=== PATIENT | female | born 1930 | race Caucasian/White ===

== ENCOUNTER 2017-12-23 13:16 | Observation (INO) | payer MEDICARE ==
[~2017-12-23 13:16] MED LIST: AMLO10TA2 PO; ASPI1TAB57 PO; CALC1TAB87 PO; FURO1TAB60 PO; K-TA10TA PO; LATA.005%O EACH EYE; LUTE6TAB2 PO; METO25TA3 PO; MULTTAB67 PO; NITR0.4S SL; PLAV75TA29 PO; SIMV20TA PO; TIMO0.2517 EACH EYE
[2017-12-23 13:54] VITALS: BP 172/76; PULSE 76; RESP 14; TEMP 98.8; O2SAT 97
[2017-12-23 14:27] LABS: AUTOMATED NEUTROPHIL # 5.9 TH/MM3 (1.8-7.7); BASOPHIL # 0.1 TH/MM3 (0-0.2); BASOPHIL % 0.9 % (0.0-2.0); EOSINOPHIL # 0.1 TH/MM3 (0-0.4); EOSINOPHIL % 1.3 % (0.0-4.0); HEMATOCRIT 36.3 % (35.0-46.0); LYMPHOCYTE # 0.7 TH/MM3 (1.0-4.8); MEAN CELL VOLUME 93.1 FL (80.0-100.0); MEAN CORPUSCULAR HEMOGLOBIN 30.7 PG (27.0-34.0); MONO % 9.5 % (0.0-8.0); MONOCYTE # 0.7 TH/MM3 (0-0.9); NEUT % 79.3 % (16.0-70.0); PLATELET COUNT 286 TH/MM3 (150-450); RED CELL DISTRIBUTION WIDTH 13.9 % (11.6-17.2); WHITE BLOOD COUNT 7.4 TH/MM3 (4.0-11.0)
[2017-12-23 14:36] LABS: PROTHROMBIN TIME - PATIENT 10.5 SEC (9.8-11.6)
--- NOTE | 2017-12-23 14:45 | PD ---
HPI Chief Complaint: Fall Time Seen by Provider: 14:00 Travel History International Travel<30 days: No Contact w/Intl Traveler<30days: No Traveled to known affect area: No History of Present Illness HPI Patient is an 87-year-old female presenting to the emergency room for evaluation dizzy, fell down causing a contusion to her left scalp. Patient is unsure if she lost consciousness. The fall was unwitnessed. Patient states that she felt dizzy for several months, it has been worse recently. She has a history of hypertension, she states that a lot of her medications were recently discontinued but cannot recall which ones they were. She is denying any chest pain, shortness of breath, fevers, chills, headache. She states the pain in her head is a 4 out of 10, and sore. Symptom onset is unknown, symptom severity is moderate, there are no alleviating factors. PFSH Past Medical History Atrial Fibrillation: Yes Cancer: Yes (left breast) High Cholesterol: Yes Chest Pain: Yes Coronary Artery Disease: Yes Gastrointestinal Disorders: Yes Hypertension: Yes Implanted Vascular Access Dvce: Yes Musculoskeletal: Yes (osteoporosis ) Neurologic: Yes (dizzy occasionally-eval by neurologist ) Immunizations Current: Yes Radiation Therapy: Yes Past Surgical History Body Medical Devices: stents Coronary Stent: Yes Eye Surgery: Yes (gilberto cataract removal) Gynecologic Surgery: Yes (left breast lumpectomy/mastectomy) Oral Surgery: Yes (tonsillectomy) Tonsillectomy: Yes Social History Alcohol Use: Yes (occasionally) Tobacco Use: No Substance Use: No Allergies-Medications (Allergen,Severity, Reaction): Coded Allergies: mesalamine (Unverified Allergy, Severe, n/v, 05/24/17) escitalopram (Unverified Allergy, Intermediate, 05/24/17) oxycodone (Unverified Allergy, Mild, 05/24/17) Reported Meds & Prescriptions Reported Meds & Active Scripts Active Metoprolol Tartrate 25 Mg Tab 25 Mg PO BID Reported Namenda (Memantine) 10 Mg Tab 10 Mg PO DAILY Amlodipine (Amlodipine Besylate) 10 Mg Tab 2.5 Mg PO DAILY hold for SBP below 120 Timolol Maleate (Timolol Maleate (Ophth)) 0.25 % Cielo 1 Drop EACH EYE BID Simvastatin 20 Mg Tab 20 Mg PO HS Plavix (Clopidogrel Bisulfate) 75 Mg Tab 75 Mg PO DAILY Nitrostat SL (Nitroglycerin) 0.4 Mg Subl 0.4 Mg SL DIRECTED PRN ONE TABLET UNDER THE TONGUE NEEDED FOR CHEST PAIN, MAY REPEAT EVERY FIVE MINUTES FOR A TOTAL OF 3 DOSES OR CALL 911 IF NO RELIEF Multiple Vitamin 1 Tab 1 Tab PO DAILY Lasix (Furosemide) 40 Mg Tab 40 Mg PO DAILY Aspirin 81 (Aspirin) 81 Mg Tabdr 81 Mg PO DAILY Xalatan Opth Drops (Latanoprost) 0.005% Drops 1 Drop EACH EYE HS Lutein 6 Mg Tab 8 Mg PO DAILY K-Tab (Potassium Chloride) 10 Meq Tab 10 Meq PO DAILY Calcium 600 with Vitamin D (Calcium Carbonate-Cholecalciferol) 600-400 mg-Unit Tab 1 Tab PO DAILY Review of Systems Except as stated in HPI: all other systems reviewed are Neg Eyes: No: Blurred Vision HENT: No: Headaches Cardiovascular: No: Chest Pain or Discomfort Respiratory: No: Shortness of Breath Gastrointestinal: No: Nausea, Abdominal Pain Skin: Positive Lumps Neurologic: Positive: Dizziness Physical Exam Narrative GENERAL: Well-developed, well-nourished, alert elderly female. Presenting in no acute distress. SKIN: Warm and dry. HEAD: Atraumatic. Normocephalic. Contusion to left occipital area. EYES: Pupils equal and round. No scleral icterus. No injection or drainage. ENT: No nasal bleeding or discharge. Mucous membranes pink and moist. NECK: Trachea midline. No JVD. CARDIOVASCULAR: Regular rate and rhythm. RESPIRATORY: No accessory muscle use. Clear to auscultation. Breath sounds equal bilaterally. GASTROINTESTINAL: Abdomen soft, non-tender, nondistended. Hepatic and splenic margins not palpable. MUSCULOSKELETAL: Extremities without clubbing, cyanosis, or edema. No obvious deformities. NEUROLOGICAL: Awake and alert. No obvious cranial nerve deficits. Motor grossly within normal limits. Five out of 5 muscle strength in the arms and legs. Normal speech. PSYCHIATRIC: Appropriate mood and affect; insight and judgment normal. Data Data Last Documented VS Vital Signs Date Time Temp Pulse Resp B/P (MAP) Pulse Ox O2 Delivery O2 Flow Rate FiO2 12/23/17 16:00 68 16 160/74 (102) 98 Room Air 12/23/17 13:54 98.8 Orders Orders Electrocardiogram (12/23/17 13:56) Complete Blood Count With Diff (12/23/17 13:56) Comprehensive Metabolic Panel (12/23/17 13:56) Iv Access Insert/Monitor (12/23/17 13:56) Urinalysis - C+S If Indicated (12/23/17 13:56) Coag Profile (12/23/17 13:57) Ct Brain W/O Iv Contrast(Rout) (12/23/17 ) Ct Cerv Spine W/O Contrast (12/23/17 ) Ckmb (Isoenzyme) Profile (12/23/17 15:20) Troponin I (12/23/17 15:20) Lidocai-Epi 1%-1:100,000 Inj (Xylocaine- (12/23/17 16:45) Place In Observation (12/23/17 ) Code Status (12/23/17 17:49) Vital Signs (Adult) Q4H (12/23/17 17:49) Activity Oob With Assistance (12/23/17 17:49) Miniature Model Maker / Telemetry .CONTINUOUS (12/23/17 17:49) Diet Heart Healthy (12/23/17 Dinner) Sodium Chloride 0.9% Flush (Ns Flush) (12/23/17 18:00) Sodium Chloride 0.9% Flush (Ns Flush) (12/23/17 21:00) Acetaminophen (Tylenol) (12/23/17 18:00) Ondansetron Inj (Zofran Inj) (12/23/17 18:00) Basic Metabolic Panel (Bmp) (12/24/17 06:00) Complete Blood Count With Diff (12/24/17 06:00) Chest, Single Ap (12/23/17 17:49) Electrocardiogram (12/23/17 17:49) Pt Request For Service (12/23/17 17:49) Scd Bilateral/Knee High BOUCHRA.BID (12/23/17 17:49) Naloxone Inj (Narcan Inj) (12/23/17 18:00) Magnesium Hydroxide Liq (Milk Of Magnesi (12/23/17 18:00) Admit Order (Ed Use Only) (12/23/17 17:51) Miniature Model Maker / Telemetry BOUCHRA.Q8H (12/23/17 17:51) Vital Signs (Adult) Q4H (12/23/17 17:51) Activity Oob With Assistance (12/23/17 17:51) Notify Dr: Other (12/23/17 17:51) Labs Laboratory Tests Test 12/23/17 13:56 12/23/17 13:58 12/23/17 13:59 Blood Urea Nitrogen 12 MG/DL Creatinine 1.00 MG/DL Random Glucose 95 MG/DL Total Protein 6.6 GM/DL Albumin 3.3 GM/DL Calcium Level 8.4 MG/DL Alkaline Phosphatase 84 U/L Aspartate Amino Transf (AST/SGOT) 25 U/L Alanine Aminotransferase (ALT/SGPT) 18 U/L Total Bilirubin 0.5 MG/DL Sodium Level 143 MEQ/L Potassium Level 3.7 MEQ/L Chloride Level 109 MEQ/L Carbon Dioxide Level 26.3 MEQ/L Anion Gap 8 MEQ/L Estimat Glomerular Filtration Rate 52 ML/MIN White Blood Count 7.4 TH/MM3 Red Blood Count 3.90 MIL/MM3 Hemoglobin 12.0 GM/DL Hematocrit 36.3 % Mean Corpuscular Volume 93.1 FL Mean Corpuscular Hemoglobin 30.7 PG Mean Corpuscular Hemoglobin Concent 33.0 % Red Cell Distribution Width 13.9 % Platelet Count 286 TH/MM3 Mean Platelet Volume 9.0 FL Neutrophils (%) (Auto) 79.3 % Lymphocytes (%) (Auto) 9.0 % Monocytes (%) (Auto) 9.5 % Eosinophils (%) (Auto) 1.3 % Basophils (%) (Auto) 0.9 % Neutrophils # (Auto) 5.9 TH/MM3 Lymphocytes # (Auto) 0.7 TH/MM3 Monocytes # (Auto) 0.7 TH/MM3 Eosinophils # (Auto) 0.1 TH/MM3 Basophils # (Auto) 0.1 TH/MM3 CBC Comment DIFF FINAL Differential Comment Prothrombin Time 10.5 SEC Prothromb Time International Ratio 1.0 RATIO Activated Partial Thromboplast Time 23.3 SEC MDM Medical Decision Making Medical Screen Exam Complete: Yes Emergency Medical Condition: Yes Interpretation(s) Vital Signs Date Time Temp Pulse Resp B/P (MAP) Pulse Ox O2 Delivery O2 Flow Rate FiO2 12/23/17 13:54 98.8 76 14 172/76 (108) 97 Differential Diagnosis Vertigo versus contusion versus hemorrhage versus arrhythmia versus metabolic abnormality versus other Narrative Course Patient is an 87-year-old female presenting for evaluation of head injury after a mechanical fall secondary to being dizzy. Patient's vital signs are stable, labs and imaging ordered and pending. CBC with no acute findings Chemistry with no acute findings CT of the cervical spine shows no acute fracture or soft tissue swelling, there is mild chronic compression deformity involving C7. Minimal cervical spondylosis from C2-C5. Mild scoliosis CT the brain shows moderate periventricular and subcortical white matter small vessel ischemic changes bilaterally. No acute infarct, hemorrhage midline shift or extra-axial fluid collections. Small hematoma along the left posterior parietal skull. Patient's vital signs are stable, she is resting comfortably. Patient will be admitted for syncopal episode. Procedures Procedure Narrative LACERATION LOCATION: Posterior scalp LENGTH: 3 cm NUMBER OF STITCHES/JAHAIRA: 8 jahaira REPAIR: The area of the laceration was prepped with Betadine and sterilely draped. The laceration was infiltrated with 1% lidocaine with epi. The wound was copiously irrigated and explored without evidence of foreign body, tendon injury or neurovascular injury. The wound was closed using jahaira. This was a 1 layer repair. A sterile dressing was applied. The patient was advised to keep the dressing clean and dry. Patient tolerated the procedure well. Diagnosis Primary Impression: Syncope Qualified Codes: R55 - Syncope and collapse Additional Impression: Laceration of head Qualified Codes: S01.01XA - Laceration without foreign body of scalp, initial encounter Admitting Information Admitting Physician Requests: Observation Condition: Stable Maryanne Martinez Dec 23, 2017 14:45
[2017-12-23 14:50] LABS: ALKALINE PHOSPHATASE 84 U/L (45-117); TOTAL BILIRUBIN ADULT 0.5 MG/DL (0.2-1.0); TOTAL PROTEIN 6.6 GM/DL (6.4-8.2)
[2017-12-23 14:52] LABS: ALBUMIN 3.3 GM/DL (3.4-5.0); ALT (GPT) 18 U/L (10-53); AST (GOT) 25 U/L (15-37); BICARBONATE 26.3 MEQ/L (21.0-32.0); BLOOD UREA NITROGEN 12 MG/DL (7-18); CALCIUM 8.4 MG/DL (8.5-10.1); CHLORIDE 109 MEQ/L (98-107); GLOMERULAR FILTRATION RATE 52 ML/MIN (>89); GLUCOSE,RANDOM 95 MG/DL (74-106); SODIUM (NA) 143 MEQ/L (136-145)
--- NOTE | 2017-12-23 14:55 | RADRPT ---
EXAM DATE/TIME: 12/23/2017 14:32 [facility] COMPARISON: No previous studies available for comparison. INDICATIONS : Fell, hit back of head RADIATION DOSE: 56.35 CTDIvol (mGy) MEDICAL HISTORY : Cardiovascular disease. Hypertension. Osteoporosis.Radiation therapy SURGICAL HISTORY : Lobectomy. Lumpectomy, mastectomy ENCOUNTER: Initial ACUITY: 1 day PAIN SCALE: 7/10 LOCATION: cranial TECHNIQUE: Multiple contiguous axial images were obtained of the head. Using automated exposure control and adj ustment of the mA and/or kV according to patient size, radiation dose was kept as low as reasonably a chievable to obtain optimal diagnostic quality images. DICOM format image data is available electro nically for review and comparison. FINDINGS: CEREBRUM: The ventricles are normal for age. No evidence of midline shift, mass lesion, hemorrhage or acute in farction. No extra-axial fluid collections are seen. Moderate periventricular and subcortical white matter small vessel ischemic changes are noted bilaterally. POSTERIOR FOSSA: The cerebellum and brainstem are intact. The 4th ventricle is midline. The cerebellopontine angle i s unremarkable. EXTRACRANIAL: The visualized portion of the orbits is intact. Small subgaleal hematoma along the left posterior par ietal skull is noted. SKULL: The calvaria is intact. No evidence of skull fracture. CONCLUSION: 1. Moderate periventricular and subcortical white matter small vessel ischemic changes bilaterally. 2. No acute infarct, acute hemorrhage, midline shift or extra-axial fluid collections. 3. Small subgaleal hematoma along the left posterior parietal skull. Paul Collazo MD on December 23, 2017 at 14:52 Board Certified Radiologist. This report was verified electronically.
--- NOTE | 2017-12-23 15:04 | RADRPT ---
EXAM DATE/TIME: 12/23/2017 14:32 [facility] COMPARISON: No previous studies available for comparison. INDICATIONS : Fell, hit back of head RADIATION DOSE: 13.55 CTDIvol (mGy) MEDICAL HISTORY : Cardiovascular disease. Hypertension. Osteoporosis.Radiation therapy SURGICAL HISTORY : Lumpectomy, mastectomy ENCOUNTER: Initial ACUITY: 1 day PAIN SCALE: 6/10 LOCATION: neck TECHNIQUE: Volumetric scanning of the cervical spine was performed. Multiplanar reconstructions in the sagittal, coronal and oblique axial planes were performed. Using automated exposure control and adjustment o f the mA and/or kV according to patient size, radiation dose was kept as low as reasonably achievable to obtain optimal diagnostic quality images. DICOM format image data is available electronically f or review and comparison. FINDINGS: There is no acute fracture or prevertebral soft tissue swelling. Mild cervical spondylosis is noted a t C2-3, C3-4 and C4-5. Mild chronic compression deformity involving C7 is noted. Mild scoliosis is no sarah. C2-C3: The bony spinal canal is normal in size. No evidence of disc bulge or herniation. The neural forami na are bilaterally patent. C3-C4: The bony spinal canal is normal in size. No evidence of disc bulge or herniation. The neural forami na are bilaterally patent. C4-C5: The bony spinal canal is normal in size. No evidence of disc bulge or herniation. The neural forami na are bilaterally patent. C5-C6: The bony spinal canal is normal in size. No evidence of disc bulge or herniation. The neural forami na are bilaterally patent. C6-C7: The bony spinal canal is normal in size. No evidence of disc bulge or herniation. The neural forami na are bilaterally patent. C7-T1: The bony spinal canal is normal in size. No evidence of disc bulge or herniation. The neural forami na are bilaterally patent. CONCLUSION: 1. No acute fracture or prevertebral soft tissue swelling. 2. Mild chronic compression deformity involving C7. 3. Mild cervical spondylosis from C2 through C5. 4. Mild scoliosis. Paul Collazo MD on December 23, 2017 at 14:59 Board Certified Radiologist. This report was verified electronically.
[2017-12-23 16:00] VITALS: BP 160/74; PULSE 68; RESP 16; O2SAT 98
[2017-12-23] MEDS ORDERED: LIDOCAINE 1%/EPINEPHrine 1:100,000 SOLN 50 ML VIAL INFIL ONE (16:45)
[2017-12-23] MEDS ORDERED: ONDANSETRON HCL 4 MG/2 ML VIAL IVP PRN (18:00)
[2017-12-23] MEDS ORDERED: SODIUM CHLORIDE 0.9% FLUSH 10 ML FLUSH IV FLUSH PRN (18:00)
[2017-12-23] MEDS ORDERED: NALOXONE HCL 0.4 MG/ML AMP IV PUSH PRN (18:00)
[2017-12-23] MEDS ORDERED: NITROGLYCERIN 0.4 MG SL 25 TABS/BTL SL PRN (18:00)
[2017-12-23] MEDS ORDERED: ACETAMINOPHEN 325 MG TAB PO PRN (18:00)
[2017-12-23] MEDS ORDERED: MAGNESIUM HYDROXIDE SUSP 30 ML CUP PO PRN (18:00)
--- NOTE | 2017-12-23 18:03 | HHI.HP ---
HPI Service [facility] Hospitalists Primary Care Physician Rojas Bragg M.D. Admission Diagnosis SYNCOPE, HEAD INJURY Chief Complaint: syncope Travel History International Travel<30 Days: No Contact w/Intl Traveler <30 Da: No Traveled to Known Affected Are: No History of Present Illness Mrs. Beavers is a pleasant 87y y/o female with hypertension, coronary artery disease, paroxysmal atrial fibrillation, and hyperlipidemia. Patient is a poor historian therefore information gathered from patient as well as prior charting. Patient presented to the [facility] ER with complaint of worsening dizziness, patient fell down causing a contusion to her left scalp. Patient is unsure if she lost consciousness. The fall was unwitnessed. Patient states that she felt dizzy for several months, it has been worse recently. Patient denies any loss of bowel or bladder control. She is denying any chest pain, shortness of breath, fevers, chills, headache. She states the pain in her head is a 4 out of 10, described as sore. In review of outpatient records patient was last seen by her PCP Dr. Bragg November 07, 2017 at which time he stopped her escitalopram, reduced alprazolam 0.25 mg at bedtime and reduced amlodipine to 2.5 mg daily. Review of Systems Constitutional: COMPLAINS OF: Dizziness Respiratory: DENIES: Shortness of breath Cardiovascular: DENIES: Chest pain, Palpitations Neurologic: COMPLAINS OF: Headache, DENIES: Localized weakness, Speech Problems Past Family Social History Past Medical History Hypertension Coronary artery disease, prior coronary stents as well as in-stent restenosis Paroxysmal atrial fibrillation Anxiety Glaucoma Diverticulosis Left breast cancer, status post left breast lumpectomy CKD, stage 3 Depression Memory loss 2D echo (07/20/16): - Estimated EF 60-65% - Trace mitral valve regurgitation - Trace aortic valve regurgitation - Trace tricuspid valve regurgitation - Mild Pulmonary HTN, RSVP 44.8mmHg Past Surgical History Left heart catheterization (02/20/16) with Dr. José Miguel Blunt and had a bare metal stent placed in RCA. Lumpectomy left breast Cataract surgery Laminectomy Basal cell carcinoma excised from the ear Reported Medications Metoprolol Tartrate 25 Mg Tab 25 Mg PO BID Namenda (Memantine) 10 Mg Tab 10 Mg PO DAILY Amlodipine (Amlodipine Besylate) 10 Mg Tab 2.5 Mg PO DAILY hold for SBP below 120 Timolol Maleate (Timolol Maleate (Ophth)) 0.25 % Cielo 1 Drop EACH EYE BID Simvastatin 20 Mg Tab 20 Mg PO HS Plavix (Clopidogrel Bisulfate) 75 Mg Tab 75 Mg PO DAILY Nitrostat SL (Nitroglycerin) 0.4 Mg Subl 0.4 Mg SL DIRECTED PRN ONE TABLET UNDER THE TONGUE NEEDED FOR CHEST PAIN, MAY REPEAT EVERY FIVE MINUTES FOR A TOTAL OF 3 DOSES OR CALL 911 IF NO RELIEF Multiple Vitamin 1 Tab 1 Tab PO DAILY Lasix (Furosemide) 40 Mg Tab 40 Mg PO DAILY Aspirin 81 (Aspirin) 81 Mg Tabdr 81 Mg PO DAILY Xalatan Opth Drops (Latanoprost) 0.005% Drops 1 Drop EACH EYE HS Lutein 6 Mg Tab 8 Mg PO DAILY K-Tab (Potassium Chloride) 10 Meq Tab 10 Meq PO DAILY Calcium 600 with Vitamin D (Calcium Carbonate-Cholecalciferol) 600-400 mg-Unit Tab 1 Tab PO DAILY Allergies: Coded Allergies: mesalamine (Unverified Allergy, Severe, n/v, 05/24/17) escitalopram (Unverified Allergy, Intermediate, 05/24/17) oxycodone (Unverified Allergy, Mild, 05/24/17) Family History Noncontributory Social History Denies any alcohol, tobacco or illicit drug use Pt is a No children She has a niece that lives in [place] She was born and raised in [facility], moved to [place] in the early 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 Cool and dry. HEAD: EYES: Extraocular motions intact. No scleral icterus. No injection or drainage. CARDIOVASCULAR: Regular rate and rhythm RESPIRATORY: Clear to auscultation. Breath sounds equal bilaterally. GASTROINTESTINAL: Abdomen soft, non-tender, nondistended. No hepato-splenomegaly , or palpable masses. No guarding. MUSCULOSKELETAL: Extremities without clubbing, cyanosis, or edema. No joint tenderness, effusion, or edema noted. No calf tenderness. Negative Homans sign bilaterally. NEUROLOGICAL: Awake and alert. Motor and sensory grossly within normal limits. 4-5 out of 5 muscle strength in all muscle groups. Laboratory Laboratory Tests Test 12/23/17 13:56 12/23/17 13:58 12/23/17 13:59 Blood Urea Nitrogen 12 Creatinine 1.00 Random Glucose 95 Total Protein 6.6 Albumin 3.3 Calcium Level 8.4 Alkaline Phosphatase 84 Aspartate Amino Transf (AST/SGOT) 25 Alanine Aminotransferase (ALT/SGPT) 18 Total Bilirubin 0.5 Sodium Level 143 Potassium Level 3.7 Chloride Level 109 Carbon Dioxide Level 26.3 Anion Gap 8 Estimat Glomerular Filtration Rate 52 White Blood Count 7.4 Red Blood Count 3.90 Hemoglobin 12.0 Hematocrit 36.3 Mean Corpuscular Volume 93.1 Mean Corpuscular Hemoglobin 30.7 Mean Corpuscular Hemoglobin Concent 33.0 Red Cell Distribution Width 13.9 Platelet Count 286 Mean Platelet Volume 9.0 Neutrophils (%) (Auto) 79.3 Lymphocytes (%) (Auto) 9.0 Monocytes (%) (Auto) 9.5 Eosinophils (%) (Auto) 1.3 Basophils (%) (Auto) 0.9 Neutrophils # (Auto) 5.9 Lymphocytes # (Auto) 0.7 Monocytes # (Auto) 0.7 Eosinophils # (Auto) 0.1 Basophils # (Auto) 0.1 CBC Comment DIFF FINAL Differential Comment Prothrombin Time 10.5 Prothromb Time International Ratio 1.0 Activated Partial Thromboplast Time 23.3 Result Diagram: 12/23/17 1358 12/23/17 1356 Imaging Last Impressions Head CT 12/23/17 0000 Signed Impressions: Service Date/Time: Saturday, December 23, 2017 14:32 - CONCLUSION: 1. Moderate periventricular and subcortical white matter small vessel ischemic changes bilaterally. 2. No acute infarct, acute hemorrhage, midline shift or extra-axial fluid collections. 3. Small subgaleal hematoma along the left posterior parietal skull. Paul Collazo MD Cervical Spine CT 12/23/17 0000 Signed Impressions: Service Date/Time: Saturday, December 23, 2017 14:32 - CONCLUSION: 1. No acute fracture or prevertebral soft tissue swelling. 2. Mild chronic compression deformity involving C7. 3. Mild cervical spondylosis from C2 through C5. 4. Mild scoliosis. Paul Collazo MD Caprini VTE Risk Assessment Caprini VTE Risk Assessment: Mod/High Risk (score >= 2) Caprini Risk Assessment Model Point Value = 1 Point Value = 2 Point Value = 3 Point Value = 5 Age 41-60 Minor surgery BMI > 25 kg/m2 Swollen legs Varicose veins or History of unexplained or recurrent spontaneous Oral contraceptives or hormone replacement Sepsis (< 1 month) Serious lung disease, including pneumonia (< 1 month) Abnormal pulmonary function Acute myocardial infarction Congestive heart failure (< 1 month) History of inflammatory bowel disease Medical patient at bed rest Age 61-74 Arthroscopic surgery Major open surgery (> 45 min) Laparoscopic surgery (> 45 min) Malignancy Confined to bed (> 72 hours) Immobilizing plaster cast Central venous access Age >= 75 History of VTE Family history of VTE Factor V Leiden Prothrombin [id number] Lupus anticoagulant Anticardiolipin antibodies Elevated serum homocysteine Heparin-induced thrombocytopenia Other congenital or acquired thrombophilia Stroke (< 1 month) Elective arthroplasty Hip, pelvis, or leg fracture Acute spinal cord injury (< 1 month) Prophylaxis Regimen Total Risk Factor Score Risk Level Prophylaxis Regimen 0-1 Low Early ambulation 2 Moderate Order ONE of the following: *Sequential Compression Device (SCD) *Heparin 5000 units SQ BID 3-4 Higher Order ONE of the following medications: *Heparin 5000 units SQ TID *Enoxaparin/Lovenox 40 mg SQ daily (WT < 150 kg, CrCl > 30 mL/min) *Enoxaparin/Lovenox 30 mg SQ daily (WT < 150 kg, CrCl > 10-29 mL/min) *Enoxaparin/Lovenox 30 mg SQ BID (WT < 150 kg, CrCl > 30 mL/min) AND/OR *Sequential Compression Device (SCD) 5 or more Highest Order ONE of the following medications: *Heparin 5000 units SQ TID (Preferred with Epidurals) *Enoxaparin/Lovenox 40 mg SQ daily (WT < 150 kg, CrCl > 30 mL/min) *Enoxaparin/Lovenox 30 mg SQ daily (WT < 150 kg, CrCl > 10-29 mL/min) *Enoxaparin/Lovenox 30 mg SQ BID (WT < 150 kg, CrCl > 30 mL/min) AND *Sequential Compression Device (SCD) Assessment and Plan Problem List: (1) Syncope ICD Codes: R55 - Syncope and collapse Status: Acute Plan: Patient presented to the [facility] ER with complaint of worsening dizziness , patient fell down causing a contusion to her left scalp. Patient denies any loss of bowel or bladder control during the event. CT head reviewed and reveals Moderate periventricular and subcortical white matter small vessel ischemic changes bilaterally. No acute infarct, acute hemorrhage, midline shift or extra-axial fluid collections. Small subgaleal hematoma along the left posterior parietal skull CT of the cervical spine reviewed and reveals no acute fracture or paravertebral soft tissue swelling. Mild chronic compression deformity involving C7. Mild cervical spondylosis from C2 through C5. Mild scoliosis Monitor patient on continuous telemetry Holter monitor, 2-D echocardiogram, bilateral carotid ultrasound We'll check ammonia level, folate acid, TSH free T4, RPR, B12 and troponin Physical therapy consulted, patient may need penitentiary facility/ rehabilitation placement at time of discharge DVT prophylaxis with SCDs for chemical DVT prophylaxis in light of recent fall with scalp laceration hematoma (2) Laceration of head ICD Codes: S01.91XA - Laceration without foreign body of unspecified part of head, initial encounter Status: Acute Plan: 3 cm posterior scalp laceration repaired in the emergency department with 8 jahaira (3) CAD (coronary artery disease) ICD Codes: I25.10 - CAD (coronary artery disease) Status: Chronic Plan: Continue patient's aspirin 81 mg daily along with metoprolol 25 mg twice a day and simvastatin 20 mg by mouth daily at bedtime Hole placements Plavix in light of recent fall with posterior scalp hematoma and laceration, last stent February 2016 (4) HTN (hypertension) ICD Codes: I10 - HTN (hypertension) Status: Chronic Plan: continue patient's home metoprolol 25 mg by mouth twice a day and Norvasc 2.5 mg daily with hold parameters Monitor blood pressure (5) Paroxysmal a-fib ICD Codes: I48.0 - Paroxysmal a-fib Status: Acute Plan: Continue patient's home aspirin 81 mg daily would not recommend further anticoagulation patient having dizziness with fall and posterior scalp hematoma Continue home metoprolol 25 mg by mouth twice a day Continue his telemetry monitoring Assessment and Plan Patient examined. Assessment and plan formulated with Lora Gomez PA-C. oJsette agree with the above. Problem Qualifiers (1) Syncope: Qualified Codes: R55 - Syncope and collapse (2) Laceration of head: Qualified Codes: S01.01XA - Laceration without foreign body of scalp, initial encounter oLra Gomez Dec 23, 2017 18:03 Ruben Hannon DO Dec 24, 2017 10:00
[2017-12-23] MEDS ORDERED: NAME10TA PO (18:07)
[2017-12-23 18:30] VITALS: BP 178/77; PULSE 79; RESP 20; TEMP 97.6; O2SAT 97
[2017-12-23 19:20] LABS: FOLATE GREATER THAN 20.0 NG/ML (3.1-17.5); FREE T4 1.03 NG/DL (0.76-1.46); TROPONIN I LESS THAN 0.02 NG/ML (0.02-0.05)
--- NOTE | 2017-12-23 19:50 | RADRPT ---
EXAM DATE/TIME: 12/23/2017 18:58 [facility] COMPARISON: CHEST SINGLE AP, August 10, 2016, 6:30. INDICATIONS : Fall yesterday. No chest pain or shortness of breath. MEDICAL HISTORY : Cardiovascular disease. Hypertension. Osteoporosis.Radiation therapy SURGICAL HISTORY : Lumpectomy, mastectomy ENCOUNTER: Initial ACUITY: 1 day PAIN SCORE: 0/10 LOCATION: Bilateral chest FINDINGS: A single view of the chest demonstrates the lungs to be symmetrically aerated without evidence of mas s, infiltrate or effusion. The cardiomediastinal contours are unremarkable. Osseous structures are intact. CONCLUSION: No evidence of acute cardiopulmonary disease. Murali Sullivan MD on December 23, 2017 at 19:47 Board Certified Radiologist. This report was verified electronically.
[2017-12-23] MEDS: PRAVASTATIN SOD 40 MG TAB PO SCH (20:40)
[2017-12-23] MEDS: SODIUM CHLORIDE 0.9% FLUSH 10 ML FLUSH IV FLUSH SCH (20:40)
[2017-12-23] MEDS: METOPROLOL TARTRATE 25 MG TAB PO SCH (20:40)
[2017-12-23] MEDS: LATANOPROST 0.005% OPHT SOLN 2.5 ML BTL EACH EYE SCH (21:00)
[2017-12-23] MEDS: TIMOLOL MALEATE 0.25% OPHT SOLN 5 ML BTL EACH EYE SCH (21:00)
[2017-12-23] MEDS ORDERED: cloNIDine HCL 0.2 MG TAB PO PRN (21:45)
[2017-12-23 23:19] VITALS: BP 212/96; PULSE 78; RESP 19; TEMP 98.4; O2SAT 96
[2017-12-23 23:23] VITALS: BP 196/77; PULSE 67; RESP 18; TEMP 96; O2SAT 97
--- NOTE | 2017-12-23 23:26 | RADRPT ---
EXAM DATE/TIME: 12/23/2017 21:19 [facility] COMPARISON: No previous studies available for comparison. INDICATIONS : Syncope. MEDICAL HISTORY : Hypercholesterolemia. Hypertension. Left eye atrophy. Glasses. Chest pain. Atrial fibrillation. Ost eoporosis. Depression. Anxiety. Left breast cancer. SURGICAL HISTORY : Tonsillectomy. Bilateral cataract surgery. Cardiac stent. Left lumpectomy. ENCOUNTER: Initial ACUITY: 1 day PAIN SCORE: 2/10 LOCATION: Bilateral neck PEAK SYSTOLIC VELOCITIES (cm/sec): ICA/CCA RATIO: Right: 1.5 Left: 1.5 ICA: Right: 108.1 Left: 87.1 CCA: Right: 69.8 Left: 56.8 ECA: Right: 72.4 Left: 50.4 VERTEBRAL: Right: 64.4 antegrade Left: 62.0 antegrade Elevated flow velocities and ICA/CCA ratios have been found to correlate with increased degrees of vessel stenosis, calculated as percentage of diameter relative to a normal segment of distal ICA/CCA FINDINGS: RIGHT CAROTID: Moderate plaque with estimated 50% narrowing of the bulb and proximal internal carotid artery. LEFT CAROTID: Mild to moderate plaque with estimated 30% narrowing of the bulb and proximal internal carotid artery . VERTEBRAL ARTERIES: Antegrade flow is seen in both vertebral arteries. MISCELLANEOUS: None. CONCLUSION: Bilateral carotid bifurcation atherosclerotic plaque, moderate on the right and mild to moderate on t he left. No hemodynamically significant narrowing. Murali Sullivan MD on December 23, 2017 at 23:23 Board Certified Radiologist. This report was verified electronically.
[2017-12-24] VITALS (9 sets, daily range): BP systolic 131–189; BP diastolic 58–81; PULSE 65–74; RESP 16–22; TEMP 97.4–98.2; O2SAT 96–98
[2017-12-24] MEDS: CLOPIDOGREL 75 MG TAB PO SCH (08:08)
[2017-12-24] MEDS: METOPROLOL TARTRATE 25 MG TAB PO SCH (08:08)
[2017-12-24] MEDS: ASPIRIN EC 81 MG TABEC PO SCH (08:09)
[2017-12-24] MEDS: SODIUM CHLORIDE 0.9% FLUSH 10 ML FLUSH IV FLUSH SCH (09:00)
[2017-12-24] MEDS: MEMANTINE HCL 10 MG TAB PO SCH (09:00)
[2017-12-24] MEDS ORDERED: LUTEIN PO SCH (09:00)
--- NOTE | 2017-12-24 09:59 | HHI.PR ---
Subjective Remarks No c/o dizziness, syncope, or falls since admission. Pt c/o occasional visual hallucination. Nursing staff states that some mild agitation last night. Objective Vitals Vital Signs Date Time Temp Pulse Resp B/P (MAP) Pulse Ox O2 Delivery O2 Flow Rate FiO2 12/24/17 08:00 97.4 71 20 169/79 (109) 96 12/24/17 03:39 138/61 (86) 12/23/17 23:23 96.0 67 18 196/77 (116) 97 12/23/17 23:19 98.4 78 19 212/96 (134) 96 12/23/17 18:30 97.6 79 20 178/77 (110) 97 12/23/17 16:00 68 16 160/74 (102) 98 Room Air 12/23/17 13:54 98.8 76 14 172/76 (108) 97 Result Diagram: 12/23/17 1358 12/23/17 1356 Imaging Last Impressions Chest X-Ray 12/23/17 1749 Signed Impressions: Service Date/Time: Saturday, December 23, 2017 18:58 - CONCLUSION: No evidence of acute cardiopulmonary disease. Murali Sullivan MD Head CT 12/23/17 0000 Signed Impressions: Service Date/Time: Saturday, December 23, 2017 14:32 - CONCLUSION: 1. Moderate periventricular and subcortical white matter small vessel ischemic changes bilaterally. 2. No acute infarct, acute hemorrhage, midline shift or extra-axial fluid collections. 3. Small subgaleal hematoma along the left posterior parietal skull. Paul Collazo MD Cervical Spine CT 12/23/17 0000 Signed Impressions: Service Date/Time: Saturday, December 23, 2017 14:32 - CONCLUSION: 1. No acute fracture or prevertebral soft tissue swelling. 2. Mild chronic compression deformity involving C7. 3. Mild cervical spondylosis from C2 through C5. 4. Mild scoliosis. Paul Collazo MD Carotid Artery Ultrasound 12/23/17 0000 Signed Impressions: Service Date/Time: Saturday, December 23, 2017 21:19 - CONCLUSION: Bilateral carotid bifurcation atherosclerotic plaque, moderate on the right and mild to moderate on the left. No hemodynamically significant narrowing. Murali Sullivan MD Objective Remarks GENERAL: This is a well-nourished, well-developed patient, in no apparent distress. CARDIOVASCULAR: Regular rate and rhythm without murmurs, gallops, or rubs. RESPIRATORY: Clear to auscultation. Breath sounds equal bilaterally. No wheezes , rales, or rhonchi. GASTROINTESTINAL: Abdomen soft, non-tender, nondistended. Normal active bowel sounds MUSCULOSKELETAL: Extremities without clubbing, cyanosis, or edema. NEURO: Alert & Oriented x4 to person, place, time, situation. Moves all ext x4 A/P Problem List: (1) Syncope ICD Codes: R55 - Syncope and collapse Status: Acute Plan: - Patient presented to the [facility] ER with complaint of worsening dizziness, patient fell down causing a contusion to her left scalp. Patient denies any loss of bowel or bladder control during the event. - CT head (12/23) reviewed and reveals Moderate periventricular and subcortical white matter small vessel ischemic changes bilaterally. No acute infarct, acute hemorrhage, midline shift or extra-axial fluid collections. Small subgaleal hematoma along the left posterior parietal skull - CT of the cervical spine (12/23) reviewed and reveals no acute fracture or paravertebral soft tissue swelling. Mild chronic compression deformity involving C7. Mild cervical spondylosis from C2 through C5. Mild scoliosis Monitor patient on continuous telemetry - B/L Carotid US (12/23) --> no hemodynamically significant stenosis - Holter --> pending. Can be completed after discharge with device returned to [facility] for interpretation. - Echocardiogram pending. Results can be followed up outpt. - ammonia level, folate acid, TSH free T4, RPR, B12 and troponin --> WNL - PT to evaluate - DVT prophylaxis - anticipate d/c to SNF this afternoon - jahaira can be removed from scalp laceration 12/31/17 - MRI brain (12/24) --> NO acute findings - ST cognitive eval (12/24) --> c/w dementia - discharge to SNF today (2) Laceration of head ICD Codes: S01.91XA - Laceration without foreign body of unspecified part of head, initial encounter Status: Acute Plan: 3 cm posterior scalp laceration repaired in the emergency department with 8 jahaira (3) CAD (coronary artery disease) ICD Codes: I25.10 - CAD (coronary artery disease) Status: Chronic Plan: - Continue patient's aspirin 81 mg daily along with metoprolol 25 mg twice a day and simvastatin 20 mg by mouth daily at bedtime - Pt's last stent 02/2016. Will NOT continue plavix upon discharge. - f/u with Cardiology outpt. (4) HTN (hypertension) ICD Codes: I10 - HTN (hypertension) Status: Chronic Plan: continue patient's home metoprolol 25 mg by mouth twice a day and Norvasc 2.5 mg daily with hold parameters Monitor blood pressure (5) Paroxysmal a-fib ICD Codes: I48.0 - Paroxysmal a-fib Status: Acute Plan: Continue patient's home aspirin 81 mg daily would not recommend further anticoagulation patient having dizziness with fall and posterior scalp hematoma Continue home metoprolol 25 mg by mouth twice a day Continue his telemetry monitoring Problem Qualifiers (1) Syncope: Qualified Codes: R55 - Syncope and collapse (2) Laceration of head: Qualified Codes: S01.01XA - Laceration without foreign body of scalp, initial encounter Ruben Hannon DO Dec 24, 2017 09:59
[2017-12-24 10:49] LABS: AUTOMATED NEUTROPHIL # 6.1 TH/MM3 (1.8-7.7); BASOPHIL # 0.1 TH/MM3 (0-0.2); BASOPHIL % 1.2 % (0.0-2.0); EOSINOPHIL # 0.1 TH/MM3 (0-0.4); EOSINOPHIL % 1.8 % (0.0-4.0); HEMOGLOBIN 10.4 GM/DL (11.6-15.3); LYMPHOCYTE # 0.8 TH/MM3 (1.0-4.8); MEAN CELL VOLUME 92.5 FL (80.0-100.0); MEAN CORPUSCULAR HEMOGLOBIN 31.1 PG (27.0-34.0); MEAN CORPUSCULAR HGB CONC 33.6 % (32.0-36.0); MEAN PLATELET VOLUME 8.9 FL (7.0-11.0); MONO % 8.8 % (0.0-8.0); MONOCYTE # 0.7 TH/MM3 (0-0.9); NEUT % 78.2 % (16.0-70.0); PLATELET COUNT 261 TH/MM3 (150-450); RED BLOOD COUNT 3.35 MIL/MM3 (4.00-5.30); RED CELL DISTRIBUTION WIDTH 13.7 % (11.6-17.2); WHITE BLOOD COUNT 7.8 TH/MM3 (4.0-11.0)
[2017-12-24 11:17] LABS: BICARBONATE 26.6 MEQ/L (21.0-32.0); CALCIUM 8.4 MG/DL (8.5-10.1); CREATININE 0.97 MG/DL (0.50-1.00)
[2017-12-24] MEDS: TIMOLOL MALEATE 0.25% OPHT SOLN 5 ML BTL EACH EYE SCH (13:26)
[2017-12-24] MEDS ORDERED: GADODIAMIDE PF 287 MG/ML 10 ML VIAL (for RAD MRI) IVCONTRAST ONE (13:45)
--- NOTE | 2017-12-24 14:13 | RADRPT ---
EXAM DATE/TIME: 12/24/2017 13:35 [facility] COMPARISON: CT BRAIN W/O CONTRAST, December 23, 2017, 14:32. INDICATIONS : Confusion. CONTRAST: 10 cc Omniscan (gadodiamide) IV MEDICAL HISTORY : Carcinoma, breast. Cardiovascular disease SURGICAL HISTORY : Fusion, cervical. Coronary artery stent. ENCOUNTER: Initial ACUITY: 1 day PAIN SCORE: 0/10 LOCATION: cranial TECHNIQUE: Multiplanar, multisequence MRI of the brain was performed both prior to and following the administrat ion of paramagnetic contrast. FINDINGS: CEREBRUM: The ventricles are normal for age. No evidence of midline shift, mass lesion, hemorrhage or acute in farction. No extraaxial fluid collections are seen. The pituitary gland and suprasellar cistern are normal in configuration. WHITE MATTER: Scattered areas of increased T2 signal identified within the white matter consistent with chronic sma ll vessel ischemic change. POSTERIOR FOSSA: The cerebellum and brainstem are intact. The 4th ventricle is midline. The cerebellopontine angle is unremarkable. The cerebellar tonsils are normal in position. DIFFUSION IMAGING: No focal areas of restricted diffusion are seen. No evidence of acute infarction. EXTRACRANIAL: The visualized portions of the orbits and paranasal sinuses are unremarkable. POST-CONTRAST: No abnormal areas of parenchymal or dural enhancement. No evidence of blood-brain barrier breakdown. CONCLUSION: No acute disease. Diffuse white matter atrophic changes. Rajani Morley MD on December 24, 2017 at 14:09 Board Certified Radiologist. This report was verified electronically.
[2017-12-24] MEDS ORDERED: WALKER WHEELS/F1 MIS (15:49)
[2017-12-24] MEDS ORDERED: ALPR.25 PO (15:50)
[2017-12-24] MEDS ORDERED: LORazepam 0.5 MG TAB PO ONE (16:45)
[2017-12-24] MEDS ORDERED: LORazepam 2 MG/ML VIAL IV PUSH PRN ×4 (16:45)
[2017-12-24] MEDS ORDERED: LORazepam 1 MG TAB PO PRN (16:45)
[2017-12-24] MEDS ORDERED: FLUMAZENIL 0.5 MG/5 ML VIAL IV PUSH PRN (16:45)
[2017-12-24] MEDS ORDERED: LORazepam 2 MG TAB PO PRN (16:45)
[2017-12-24] MEDS ORDERED: LORazepam 2 MG/ML VIAL IV PUSH ONE (17:00)
--- NOTE | 2017-12-24 18:28 | EKG ---
Date Performed: 12/23/2017 Time Performed: 14:09:30 PTAGE: 87 years EKG: Sinus rhythm MARKED BASELINE ARTIFACT PROBABLY WITHIN NORMAL LIMITS NORMAL ECG Compared to PREVIOUS TRACING , the rhythm has changed from atrial fibrillation to sinus rhythm. PREVI OUS TRACIN08/10/2016 11.27 DOCTOR: Darren Ritter Interpretating Date/Time 12/24/2017 18:27:11
--- NOTE | 2017-12-24 18:44 | ECHRPT ---
Indication: SYNCOPE CONCLUSIONS Normal left ventricular size. Wall thickness is measured at the upper limits of normal. The left ventricular systolic function is normal with an estimated ejection fraction in the range of 60-65%. No definite regioinal wall motion abnormalities. Trace aortic valve regurgitation. The aortic valve is not well visualized. There is trace tricuspid valve regurgitation. Mild mitral valve regurgitation. BP: 138 / 61 HR: 67 Rhythm: Sinus MEASUREMENTS (Male / Female) Normal Values Technical Quality:Fair 2D ECHO LV Diastolic Diameter PLAX 3.6 cm 4.2 - 5.9 / 3.9 - 5.3 cm LV Systolic Diameter PLAX 2.3 cm IVS Diastolic Thickness 1.2 cm 0.6 - 1.0 / 0.6 - 0.9 cm LVPW Diastolic Thickness 1.2 cm 0.6 - 1.0 / 0.6 - 0.9 cm LV Relative Wall Thickness 0.7 RV Internal Dim ED PLAX 2.2 cm LVOT Diameter 1.7 cm LA Systolic Diameter LX 3.1 cm 3.0 - 4.0 / 2.7 - 3.8 cm M-MODE AV Cusp Separation MM 1.9 cm DOPPLER AV Peak Velocity 143.0 cm/s AV Peak Gradient 8.2 mmHg AV Mean Gradient 5.0 mmHg AV Velocity Time Integral 34.9 cm LVOT Peak Velocity 80.5 cm/s LVOT Peak Gradient 2.6 mmHg LVOT Velocity Time Integral 20.1 cm AV Area Cont Eq vti 1.3 cm AV Area Cont Eq pk 1.3 cm Mitral E Point Velocity 101.0 cm/s Mitral A Point Velocity 88.8 cm/s Mitral E to A Ratio 1.1 LV E' Lateral Velocity 5.5 cm/s Mitral E to LV E' Lateral Ratio 18.5 LV E' Septal Velocity 5.5 cm/s Mitral E to LV E' Septal Ratio 18.5 TR Peak Velocity 261.0 cm/s TR Peak Gradient 27.2 mmHg Right Atrial Pressure 10.0 mmHg Pulmonary Artery Systolic Pressu 37.2 mmHg Right Ventricular Systolic Press 37.2 mmHg PV Peak Velocity 79.0 cm/s PV Peak Gradient 2.5 mmHg FINDINGS LEFT VENTRICLE Normal left ventricular size. Wall thickness is measured at the upper limits of normal. The left ventricular systolic function is normal with an estimated ejection fraction in the range of 60-65%. No definite regioinal wall motion abnormalities. RIGHT VENTRICLE Normal right ventricular size and systolic function. LEFT ATRIUM The left atrial size is upper limits of normal. RIGHT ATRIUM The right atrial size is normal. ATRIAL SEPTUM No atrial level shunt is demonstrated by color flow Doppler interrogation. AORTA The aortic root and proximal ascending aorta are normal in size on limited imaging. MITRAL VALVE Mild mitral valve regurgitation. AORTIC VALVE Trace aortic valve regurgitation. The aortic valve is not well visualized. TRICUSPID VALVE There is trace tricuspid valve regurgitation. PULMONARY VALVE No pulmonary valve regurgitation or stenosis. VESSELS The inferior vena cava is normal in size. PERICARDIUM No pericardial effusion. Frantz Hilton MD (Electronically Signed) Final Date:24 December 2017 18:43
[2017-12-25] MEDS: METOPROLOL TARTRATE 25 MG TAB PO SCH ×2 (00:32→08:49)
[2017-12-25] MEDS: LATANOPROST 0.005% OPHT SOLN 2.5 ML BTL EACH EYE SCH (00:42)
[2017-12-25] MEDS: SODIUM CHLORIDE 0.9% FLUSH 10 ML FLUSH IV FLUSH SCH ×2 (00:42→08:50)
[2017-12-25] MEDS: TIMOLOL MALEATE 0.25% OPHT SOLN 5 ML BTL EACH EYE SCH ×2 (00:42→08:51)
[2017-12-25] MEDS: PRAVASTATIN SOD 40 MG TAB PO SCH (00:42)
[2017-12-25 03:44] VITALS: BP 174/74; PULSE 66; RESP 17; TEMP 97.8; O2SAT 95
[2017-12-25] MEDS: ENALAPRILAT 1.25 MG/ML VIAL IV PUSH PRN ×2 (04:36→04:41)
[2017-12-25 07:18] VITALS: BP 189/74; PULSE 71; RESP 16; TEMP 98; O2SAT 97
[2017-12-25] MEDS: ASPIRIN EC 81 MG TABEC PO SCH (08:49)
[2017-12-25] MEDS: CLOPIDOGREL 75 MG TAB PO SCH (08:50)
[2017-12-25] MEDS: MEMANTINE HCL 10 MG TAB PO SCH (08:51)
[2017-12-25] MEDS ORDERED: FOLIC ACID 1 MG TAB PO SCH (09:00)
[2017-12-25] MEDS ORDERED: THIAMINE HCL 100 MG TAB PO SCH (09:00)
[2017-12-25] MEDS ORDERED: amLODIPine BESYLATE 5 MG TAB PO SCH (09:30)
[2017-12-25 13:18] VITALS: BP 175/70; PULSE 76; RESP 16; TEMP 98; O2SAT 98
[2017-12-25 16:19] VITALS: BP 172/79; PULSE 81; RESP 14; TEMP 98; O2SAT 96
== END 2017-12-25 17:18 ==
LOC: NEPE 13:16 → NEDA 17:53 → NEDH 20:16 → NEPGCP 12-24 12:19
PROVIDERS: ADMIT Hospitalist; ATTEND Hospitalist
DX: R55 Syncope and collapse (principal); S01.01XA Laceration without foreign body of scalp, initial encounter; I25.10 Atherosclerotic heart disease of native coronary artery without angina pectoris; I12.9 Hypertensive chronic kidney disease with stage 1 through stage 4 chronic kidney disease, or unspecified chronic kidney disease; N18.3 Chronic kidney disease, stage 3 (moderate); I48.0 Paroxysmal atrial fibrillation; E78.5 Hyperlipidemia, unspecified; E78.00 Pure hypercholesterolemia, unspecified; I27.20 Pulmonary hypertension, unspecified; M81.0 Age-related osteoporosis without current pathological fracture; R07.9 Chest pain, unspecified; R44.1 Visual hallucinations; M47.812 Spondylosis without myelopathy or radiculopathy, cervical region; K57.90 Diverticulosis of intestine, part unspecified, without perforation or abscess without bleeding; H40.9 Unspecified glaucoma; W18.30XA Fall on same level, unspecified, initial encounter; Z79.82 Long term (current) use of aspirin; Z95.5 Presence of coronary angioplasty implant and graft; Z85.828 Personal history of other malignant neoplasm of skin
CPT/HCPCS: 12002; 70450; 70553; 71045; 72125; 80048; 80053; 82140; 82550; 82607; 82746; 84439; 84443; 84484; 85025; 85610; 85730; 86592; 93005; 93306; 93880; 96125; 96374; 97162; 97166; 99285; A9579; G0378; G8987; G8988; J2060